=== PATIENT | female | born 1955 | race Caucasian/White ===

== ENCOUNTER → 2018-08-25 | Outpatient (CLI) | payer SELFPAY ==
--- NOTE | 2018-08-25 16:52 | PCVCIMAG ---
APPROVED REPORT Study performed: 08/25/2018 09:42:41 Exam: Stress Echocardiogram Indication: CAD s/p Stent Patient Location: Echo lab Stress Nurse: Rekha Fry RN Status: routine Ht: 5 ft 4 in HR: 100 bpm BP: 108/80 mmHg Rhythm: NSR Medical History Medical History: HTN, Hyperlipidemia, Stent Procedure The patient underwent an Exercise Stress Test using the Fl[employer] Protocol. Blood pressure, heart rate, and EKG were monitored. An Echocardiogram was performed by durability technician in four stages in quad fashion. At peak stress, four selected images were obtained and placed side by side with resting images for comparison. Stress Test Details Stress Test: Exercise stress testing was performed using a Flaco protocol. HR Resting HR: 100 bpmMax Heart Rate (APMHR): 156 bpm Max HR Achieved: 176 bpmTarget HR (85% APMHR): 132 bpm % of APMHR: 112 Recovery HR: 104 bpm HR response to stress: Normal HR response to stress BP Resting BP: 108/80 mmHg Max BP: 190/80 mmHg Recovery BP: 124/64 mmHg BP response to stress: Normal blood pressure response to stress. ECG Resting ECG: Sinus Rhythm Stress ECG: Sinus Rhythm ST Change: Nondiagnostic resting ST abnormalities Maximum ST Deviation: 0.5 mm Arrhythmia: None Recovery ECG: Sinus Rhythm Recovery ST Change: Nondiagnostic ST abnormalities Recovery ST Deviation: 0 mm Recovery Arrhythmia: None Clinical Reason for Termination: Maximal effort Exercise duration: 6 min sec Highest Stage Achieved: Stage 2: 2.5 mph at 12% grade. Exercise capacity: 7.00 METs Overall Exercise Capacity for Age: Average Angina Score: Non-Limiting Stress ECG Conclusion Clinical: Non-ischemic ECG: Non-ischemic Crum Treadmill Score is -0.5 which is Moderate risk. Pre-Stress Echo The resting Echocardiogram showed normal left ventricular contractility with an estimated Ejection Fraction of about 55-60%. Normal wall motion in all segments on baseline images. Post-Stress Echo The stress Echocardiogram showed normal left ventricular contractility with an estimated Ejection Fraction of about 60-65%. Normal augmentation of wall motion in all segments on post stress images. Clinical No clinical or ECG evidence for ischemia. Conclusion Clinical Response: Non-ischemic Exercise Capacity: Average Stress ECG Response: Non-ischemic Stress Echo Images: Non-ischemic Technically difficult study The left ventricle is normal in size and wall thickness in both the rest and stress images. Normal stress echocardiogram with maximal exercise stress. Other Information Study Quality: Technically Difficult <Conclusion> Technically difficult study The left ventricle is normal in size and wall thickness in both the rest and stress images. Normal stress echocardiogram with maximal exercise stress.
== END | disposition home or self-care (01) ==
LOC: PCVCIMAG 12:54
PROVIDERS: ATTEND Internal Medicine
DX: I25.10 Atherosclerotic heart disease of native coronary artery without angina pectoris (principal); I10 Essential (primary) hypertension; E78.5 Hyperlipidemia, unspecified
CPT/HCPCS: 93325; 93351